=== PATIENT | male | born 1995 | race Caucasian/White ===

== ENCOUNTER 2018-07-24 15:40 | Emergency (ER) | payer OTHER ==
[~2018-07-24] VITALS: Ht 172.7 cm; Wt 72.6 kg
[~2018-07-24 15:40] MED LIST: BACTRIM DS TAB1 EACH PO; IBUPROFEN 600600 M1 PO; MOBIC7.5 MG PO; NOHOMEMEDICATIONS; NORCO 5-325 TA1 EACH PO
[2018-07-24] MEDS ORDERED: FLONASE 0.05%50 MCG NASAL (15:55)
[2018-07-24 16:01] VITALS: BP 129/80
== END 2018-07-24 16:02 | disposition home or self-care (01) ==
LOC: M.ERS 15:40
DX: R09.81 Nasal congestion (principal); R07.89 Other chest pain